=== PATIENT | male | born 1990 | race Caucasian/White ===

== ENCOUNTER 2017-07-09 09:19 | Emergency (ER) | payer SELFPAY ==
[~2017-07-09] VITALS: Ht 172.7 cm; Wt 80.0 kg
[2017-07-09 09:20] VITALS: BP 140/89; PULSE 65; RESP 16; TEMP 98.7; O2SAT 97
[2017-07-09] MEDS ORDERED: IBUPROFEN 600 MG TAB PO ONE (09:45)
[2017-07-09] MEDS ORDERED: PENICILLIN V POTASSIUM 500 MG TAB PO ONE (09:45)
[2017-07-09] MEDS ORDERED: IBUP-232 PO (09:51)
[2017-07-09] MEDS ORDERED: PENI500T PO (09:51)
--- NOTE | 2017-07-09 09:51 | PD ---
HPI Chief Complaint: Oral / Dental Pain or Problem Time Seen by Provider: 09:34 Travel History International Travel<30 days: No Contact w/Intl Traveler<30days: No Traveled to known affect area: No History of Present Illness HPI Patient is a 27-year-old male who presents to emergency room complaints of left lower molar tooth pain which has been ongoing for the past year. Patient reports that pain has been worse over the past few days, reports that he does not have dental insurance, and can't find a dentist to see him. Patient with no fevers chills, no nausea or vomiting. Patient with no other complaints. PFSH Past Medical History Medical History: Denies Significant Hx Past Surgical History Surgical History: No Previous Surgery Social History Alcohol Use: Yes (OCC) Tobacco Use: Yes Substance Use: No Allergies-Medications (Allergen,Severity, Reaction): Coded Allergies: No Known Allergies (Unverified , 07/09/17) Reported Meds & Prescriptions Reported Meds & Active Scripts Active Ibuprofen 600 Mg Tab 600 Mg PO Q6H PRN Penicillin V Potassium 500 Mg Tab 500 Mg PO Q6H 10 Days Review of Systems General / Constitutional: No: Fever Eyes: No: Visual changes HENT: Positive: Dental Difficulties, No: Headaches Cardiovascular: No: Chest Pain or Discomfort Respiratory: No: Shortness of Breath Gastrointestinal: No: Abdominal Pain Genitourinary: No: Dysuria Musculoskeletal: No: Pain Skin: No Rash Neurologic: No: Weakness Psychiatric: No: Depression Endocrine: No: Polydipsia Hematologic/Lymphatic: No: Easy Bruising Physical Exam Narrative GENERAL: Well-nourished, well-developed patient. SKIN: Focused skin assessment warm/dry. HEAD: Normocephalic. EYES: No scleral icterus. No injection or drainage. Mouth: poor dentition, patient with cracked tooth to left lower molar NECK: Supple, trachea midline. No JVD or lymphadenopathy. CARDIOVASCULAR: Regular rate and rhythm without murmurs, gallops, or rubs. RESPIRATORY: Breath sounds equal bilaterally. No accessory muscle use. GASTROINTESTINAL: Abdomen soft, non-tender, nondistended. MUSCULOSKELETAL: No cyanosis, or edema. BACK: Nontender without obvious deformity. No CVA tenderness. Data Data Last Documented VS Vital Signs Date Time Temp Pulse Resp B/P (MAP) Pulse Ox O2 Delivery O2 Flow Rate FiO2 07/09/17 09:20 98.7 65 16 140/89 (106) 97 Room Air Orders Orders Penicillin V Potassium (Veetids) (07/09/17 09:45) Ibuprofen (Motrin) (07/09/17 09:45) MDM Medical Decision Making Medical Screen Exam Complete: Yes Emergency Medical Condition: Yes Medical Record Reviewed: Yes Interpretation(s) Vital Signs Date Time Temp Pulse Resp B/P (MAP) Pulse Ox O2 Delivery O2 Flow Rate FiO2 07/09/17 09:20 98.7 65 16 140/89 (106) 97 Room Air Differential Diagnosis Dental infection, dental pain Narrative Course Plan to start patient on penicillin, patient was given follow up paperwork for self pay dental help Patient will return to ER as needed Diagnosis Primary Impression: Pain, dental Additional Instructions: Please follow-up with dentist as soon as possible Return to ER as needed Please take all antibiotics as prescribed Med/Other Pt SpecificInfo: Prescription(s) given Scripts Ibuprofen (Ibuprofen) 600 Mg Tab 600 MG PO Q6H Y for Pain/Inflammation, #40 TAB 0 Refills Prov: Angelica Paiz DO 07/09/17 Penicillin V Potassium (Penicillin V Potassium) 500 Mg Tab 500 MG PO Q6H for Infection for 10 Days, #40 TAB 0 Refills Prov: Angelica Paiz DO 07/09/17 Disposition: 01 DISCHARGE HOME Condition: Stable Angelica Paiz DO Jul 09, 2017 09:51
[2017-07-09] MEDS ORDERED: KETOROLAC TROMETHAMINE 60 MG/2 ML (IM) VIAL IM ONE (10:15)
== END 2017-07-09 10:43 | disposition left against medical advice (07) ==
LOC: NEPD 09:19
DX: K08.89 Other specified disorders of teeth and supporting structures (principal); Z72.0 Tobacco use
CPT/HCPCS: 96372

== ENCOUNTER 2017-07-09 11:09 | Emergency (ER) | payer SELFPAY ==
[~2017-07-09] VITALS: Ht 172.7 cm; Wt 79.5 kg
[~2017-07-09 11:09] MED LIST: IBUP-232 PO; PENI500T PO
[2017-07-09 11:10] VITALS: BP 144/93; PULSE 73; RESP 16; TEMP 98.6; O2SAT 98
--- NOTE | 2017-07-09 11:40 | PD ---
HPI Chief Complaint: Oral / Dental Pain or Problem Time Seen by Provider: 11:35 Travel History International Travel<30 days: No Contact w/Intl Traveler<30days: No Traveled to known affect area: No History of Present Illness HPI This is a 27-year-old male who presents for evaluation of dental pain. Symptoms started several months ago but worse over the past few days when he felt like a piece of his tooth broke off. The pain is a throbbing pain, constant, worse when chewing. He was just seen for evaluation of this issue earlier this morning. Initially he was going to be prescribed nonnarcotic analgesics and penicillin however he refused treatment and did not want a bill so ultimately he was discharged. He now returns for a "second opinion." He has no other complaints at this time. History Social History Alcohol Use: Yes (OCC) Tobacco Use: Yes Allergies-Medications (Allergen,Severity, Reaction): Coded Allergies: No Known Allergies (Unverified , 07/09/17) Reported Meds & Prescriptions Reported Meds & Active Scripts Active Ibuprofen 600 Mg Tab 600 Mg PO Q6H PRN Penicillin V Potassium 500 Mg Tab 500 Mg PO Q6H 10 Days Review of Systems General / Constitutional: No: Fever, Chills HENT: Positive: Dental Difficulties Physical Exam Narrative GENERAL: Well-developed well-nourished male in no acute distress SKIN: Warm and dry. HEAD: Atraumatic. Normocephalic. EYES: Pupils equal and round. No scleral icterus. No injection or drainage. ENT: No nasal bleeding or discharge. Mucous membranes pink and moist. There is dental decay localized to the left mandibular third molar. There is no surrounding gingival edema, no trismus, no sublingual edema NECK: Trachea midline. No JVD. No lymphadenopathy or submandibular edema. CARDIOVASCULAR: Regular rate and rhythm. No murmur appreciated. RESPIRATORY: No accessory muscle use. Clear to auscultation. Breath sounds equal bilaterally. Data Data Last Documented VS Vital Signs Date Time Temp Pulse Resp B/P (MAP) Pulse Ox O2 Delivery O2 Flow Rate FiO2 07/09/17 11:10 98.6 73 16 144/93 (110) 98 Room Air MDM Medical Screen Exam Complete: Yes Emergency Medical Condition: No Narrative Course Ultimately this patient requires outpatient follow-up with a dentist, likely tooth extraction. He has already previously refused treatment with nonnarcotic pain medicine and antibiotics and no further treatment is warranted at this time. A medical screening exam was performed: At the time of evaluation the presenting medical condition was determined not to be of an emergent nature. The patient was given the option of receiving additional care, but declined. Patient was given options for additional community resources from which to obtain care. The Patient Has Been advised to seek medical attention for their presenting complaint. The patient has been advised to return to the ER at any time if an emergent condition develops. Primary Impression: Encounter for medical screening examination Pipo Victoria Jul 09, 2017 11:40
== END 2017-07-09 11:47 | disposition left against medical advice (07) ==
LOC: NEPK 11:09
DX: K08.89 Other specified disorders of teeth and supporting structures (principal); Z72.0 Tobacco use
CPT/HCPCS: 99281

== ENCOUNTER 2018-01-05 11:47 | Emergency (ER) | payer SELFPAY ==
[~2018-01-05] VITALS: Ht 170.2 cm; Wt 80.0 kg
[2018-01-05 11:49] VITALS: BP 137/76; PULSE 94; RESP 15; TEMP 99.2; O2SAT 100
[2018-01-05] MEDS ORDERED: LIDOCAINE 1%/EPINEPHrine 1:100,000 SOLN 20 ML VIAL INFIL ONE (12:00)
--- NOTE | 2018-01-05 12:04 | PD ---
HPI . abscess Chief Complaint: Skin Problem Time Seen by Provider: 11:51 Travel History International Travel<30 days: No Contact w/Intl Traveler<30days: No Traveled to known affect area: No History of Present Illness HPI Patient presents with chief complaint of an abscess on his right forearm for the last 3 days. It is getting progressively worse. He rates the pain 8/10 with no modifying factors. He states that he has treated it prior to arrival with warm and cold compresses. [facility] Social History Alcohol Use: Yes ([facility]) Tobacco Use: Yes Substance Use: No Allergies-Medications (Allergen,Severity, Reaction): Coded Allergies: No Known Allergies (Unverified , 01/05/18) Reported Meds & Prescriptions Reported Meds & Active Scripts Active No Active Prescriptions or Reported Medications Review of Systems Except as stated in HPI: all other systems reviewed are Neg Physical Exam Narrative GENERAL: Awake and alert and in no acute distress. SKIN: Warm and dry. He has an area of induration and erythema on the right forearm lateral to the antecubital fossa. There is central fluctuance. HEAD: Normocephalic/atraumatic. EYES: Pupils are equal. Extraocular movements are intact. NECK: Normal range of motion. CARDIOVASCULAR: Regular rate and rhythm. RESPIRATORY: Nonlabored respirations. MUSCULOSKELETAL: Atraumatic. NEUROLOGICAL: Nonfocal. PSYCHIATRIC: Appropriate mood and affect. Data Data Last Documented VS Vital Signs Date Time Temp Pulse Resp B/P (MAP) Pulse Ox O2 Delivery O2 Flow Rate FiO2 01/05/18 11:49 99.2 94 15 137/76 (96) 100 Orders Orders Lidocai-Epi 1%-1:100,000 Inj (Xylocaine- (01/05/18 12:00) MDM Medical Decision Making Medical Screen Exam Complete: Yes Emergency Medical Condition: Yes Differential Diagnosis My differential diagnosis closed but is not limited to abscess, cyst, lipoma Narrative Course This patient presents with an abscess on his right forearm. It will be I&Ded. Procedures Procedure Narrative INCISION AND DRAINAGE OF ABSCESS: The area was prepped and was sterilely draped. A subcutaneous wheal of 1 % Xylocaine with epinephrine with a total number 2 mL was used to anesthetize the area properly. A number 11 scalpel was used to make a 1-cm incision across the area of the abscess. The abscess was drained and complex loculations were broken down. 1/2 inch plain packing was placed in the wound. Sterile dressing applied. Patient advised to have packing removed in two days. Diagnosis Primary Impression: Abscess Patient Instructions: Abscess (ED), General Instructions Additional Instructions: Return in 2 days for recheck and removal of the packing. Med/Other Pt SpecificInfo: Prescription(s) given Scripts Ibuprofen (Ibuprofen) 800 Mg Tab 800 MG PO Q8H Y for Pain/Inflammation, #60 TAB 0 Refills Prov: Saundra Nunez MD 01/05/18 Sulfamethoxazole-Trimethoprim (Bactrim DS) 800-160 Mg Tab 1 TAB PO BID for Infection, #14 TAB 0 Refills Prov: Saundra Nunez MD 01/05/18 Disposition: 01 DISCHARGE HOME Condition: Stable Saundra Nunez MD January 05, 2018 12:04
[2018-01-05] MEDS ORDERED: BACT800T5 PO (12:26)
[2018-01-05] MEDS ORDERED: IBUP1TAB7 PO (12:26)
== END 2018-01-05 13:05 | disposition home or self-care (01) ==
LOC: NEPD 11:47
DX: L02.413 Cutaneous abscess of right upper limb (principal); Z72.0 Tobacco use
CPT/HCPCS: 10060